=== PATIENT | male | born 1965 | race Caucasian/White ===

== ENCOUNTER 2022-12-26 10:35 | Day surgery (SDC) | payer MEDICARE ==
[2022-12-26] MEDS ORDERED: LIDOCAINE HCL 2% 100 MG/5 ML IJ ONE (10:36)
[2022-12-26] MEDS ORDERED: Decadron 4 MG INJ IV ONE (10:36)
[2022-12-26] MEDS ORDERED: DIPRIVAN 200 MG/20 ML IV ONE ×2 (12:14→12:23)
--- NOTE | 2022-12-26 13:08 | XRAY ---
Indication: Right C2-C4 MBB. Intraoperative fluoroscopy provided for 22 seconds. 4 digital spot image submitted for interpretation demonstrates posterior needle tips projecting over the expected right C2-C4 nerve roots. Correlate with intraoperative findings/report. Incidental partially visualized lower cervical fusion hardware.
[2022-12-26] MEDS ORDERED: Lactated Ringers 1,000 ML IV ONE (13:35)
--- NOTE | 2022-12-26 13:54 | XRAY ---
22 seconds of fluoroscopy was used in surgery for a right C2-C4 MBB.
== END 2022-12-26 12:42 | disposition home or self-care (01) ==
LOC: SDC-PAIN 10:35
PROVIDERS: ATTEND Psychiatry & Neurology Pain Medicine
DX: M47.812 Spondylosis without myelopathy or radiculopathy, cervical region (principal); Z79.899 Other long term (current) drug therapy
CPT/HCPCS: 64490; 64491; 72040; 77002; J1100; J2704

== ENCOUNTER 2023-01-30 13:43 | Day surgery (SDC) | payer MEDICARE ==
[2023-01-30] MEDS ORDERED: Decadron 4 MG INJ IV ONE (13:44)
[2023-01-30] MEDS ORDERED: BUPIVACAINE 0.5% VIAL IJ ONE (13:44)
[2023-01-30] MEDS ORDERED: DIPRIVAN 200 MG/20 ML IV ONE (16:00)
--- NOTE | 2023-01-30 16:45 | XRAY ---
Indication: Right C2-C4 MBB. Intraoperative fluoroscopy provided for 10 seconds. 2 digital spot images submitted for interpretation demonstrates posterior needle tips projecting over the expected right C2-C4 nerve roots. Correlate with intraoperative findings/report. Incidental partially visualized lower cervical fusion hardware.
[2023-01-30] MEDS ORDERED: Lactated Ringers 1,000 ML IV ONE (16:53)
--- NOTE | 2023-01-30 20:14 | XRAY ---
10 seconds of fluoroscopy was used in surgery for a right C2-C4 MBB.
== END 2023-01-30 16:30 | disposition home or self-care (01) ==
LOC: SDC-PAIN 13:43
PROVIDERS: ATTEND Psychiatry & Neurology Pain Medicine
DX: M47.812 Spondylosis without myelopathy or radiculopathy, cervical region (principal); Z79.899 Other long term (current) drug therapy
CPT/HCPCS: 64490; 64491; 72040; 77002; J1100; J2704

== ENCOUNTER 2023-02-20 06:59 | Day surgery (SDC) | payer MEDICARE ==
[2023-02-20] MEDS ORDERED: Decadron 4 MG INJ IV ONE (07:00)
[2023-02-20] MEDS ORDERED: BUPIVACAINE 0.5% VIAL IJ ONE (07:00)
[2023-02-20] MEDS ORDERED: LIDOCAINE HCL 1% 50 MG/5 ML VL PF IJ ONE (07:00)
[2023-02-20] MEDS ORDERED: DIPRIVAN 200 MG/20 ML IV ONE ×2 (08:30)
[2023-02-20] MEDS ORDERED: Lactated Ringers 1,000 ML IV ONE (09:45)
--- NOTE | 2023-02-20 10:26 | XRAY ---
Indication: Right C2-C4 RFA. Intraoperative fluoroscopy provided for 41 seconds. 2 digital spot images submitted for interpretation demonstrate posterior needle tips projecting over the expected right C2-C4 nerve roots. Correlate with intraoperative findings/report. Incidental incompletely visualized mid to lower cervical fusion hardware.
--- NOTE | 2023-02-20 11:53 | XRAY ---
41 seconds of fluoroscopy was used in surgery for a right C2-C4 RFA.
== END 2023-02-20 08:52 | disposition home or self-care (01) ==
LOC: SDC-PAIN 06:59
PROVIDERS: ATTEND Psychiatry & Neurology Pain Medicine
DX: M47.812 Spondylosis without myelopathy or radiculopathy, cervical region (principal); Z79.899 Other long term (current) drug therapy
CPT/HCPCS: 64635; 64636; 72040; 77002; J1100; J2001; J2704